=== PATIENT | male | born 1960 | race Two or more races ===

== ENCOUNTER 2024-05-09 10:28 | Emergency (ER) | payer MEDICAID ==
[~2024-05-09] VITALS: Ht 175.3 cm; Wt 93.1 kg
[2024-05-09 11:37] VITALS: BP 129/78; PULSE 79; RESP 16; TEMP 98; O2SAT 96
[2024-05-09] MEDS ORDERED: AMLO1TAB23 PO (11:57)
[2024-05-09] MEDS ORDERED: LISI-285 PO (11:57)
[2024-05-09] MEDS ORDERED: METF-371 PO (11:57)
[2024-05-09] MEDS ORDERED: SIMV20TA20 PO (11:57)
[2024-05-09] MEDS ORDERED: MELO7.5T7 PO (11:57)
== END 2024-05-09 12:07 | disposition home or self-care (01) ==
LOC: ER 10:28
DX: E11.9 Type 2 diabetes mellitus without complications (principal); I10 Essential (primary) hypertension; E78.5 Hyperlipidemia, unspecified; Z76.0 Encounter for issue of repeat prescription; Z79.1 Long term (current) use of non-steroidal anti-inflammatories (NSAID); Z79.84 Long term (current) use of oral hypoglycemic drugs; Z79.899 Other long term (current) drug therapy